=== PATIENT | male | born 2000 | race Hispanic/Latino ===

== ENCOUNTER 2024-03-03 02:22 | Emergency (ER) | payer MEDICAID ==
[~2024-03-03] VITALS: Ht 170.2 cm; Wt 65.8 kg
--- NOTE | 2024-03-03 02:32 | ERN ---
ED Note History of Present Illness Stated Complaint: NO COMPLAINT Chief Complaint: Other Problems Time Seen by MD: 02:44 Time Seen by Midlevel: 02:25 Dictation: 23-year-old male with a history of depression and anxiety coming in due to suicidal ideation. At this time patient is denying any suicidal homicidal ideations. Patient is stating his girlfriend left him, he went out drinking with his friends had 10 or more drinks when he got home he wrapped a rope around his neck is send a picture to his girlfriend. His girlfriend then sent picture to the foster mom in called PD. Patient states he did not do a two in his life he is just upset about the break up. Allergies: Coded Allergies: No Known Drug Allergies (Unverified Allergy, Unknown, 03/03/24) Review of System Dictation Constitutional: Negative for fever,chills, and weight loss Eyes: Negative for injury, pain,redness, and discharge ENT: Negative for injury,pain or swelling Cardiovascular: Negative for chest pain, palpitations, and edema Respiratory: Negative for shortness of breath, cough, and wheezing, Abdomen/GI: Negative for abdominal pain, nausea, vomiting, diarrhea, and constipation Back: Negative for injury and pain : Negative for injury, bleeding and discharge MS/Extremity: Negative for injury and deformity Skin: Negative for rash, and discoloration Neuro: Negative for headache, weakness, numbness, tingling, and seizure Psych: Negative for suicide ideation, homicidal ideation, and hallucinations Review of Systems: was completed Initial Vital Sign VS Vital Signs Date Time Temp Pulse Resp B/P (MAP) Pulse Ox O2 Delivery O2 Flow Rate FiO2 03/03/24 02:24 98.2 72 16 122/83 99 Room Air 0 03/03/24 02:24 21 Physical Exam Dictation General: awake, alert, NAD Head/Face: Normocephalic, atraumatic Eyes: PERRL, EOMI, vision at baseline ENT: oral cavity clear, TMs clear, no signs of infection Neck: Trachea midline, supple, no nuchal rigidity Cardiovascular: RRR, normal S1/S2, No MRGs, no JVD Respiratory: CTAB, no respiratory distress, No rales or wheezes Abdomen: Soft, non-tender, non-distended, normal bowel sounds, no guarding or rebound. Skin: Warm, dry, normal turgor, no rash MS/Extremity: Pulses equal, no cyanosis, neurovascular intact, FROM Neuro: COAx4, GCS 15, strength 5/5, CN 2-12 intact, normal cerebellar exam, normal gait, Psych: Normal behavior, mood, and affect normal Results (Laboratory/Radiology) Laboratory/Radiology Laboratory Tests Test 03/03/24 02:38 03/03/24 02:46 03/03/24 04:49 Urine Color LIGHT-YELLOW (YELLOW) Urine Appearance CLEAR (CLEAR) Urine pH 5.5 (5.0-8.0) Urine Specific Meredith 1.009 (1.001-1.031) Urine Protein NEGATIVE mg/dL (NEGATIVE) Urine Glucose (UA) NEGATIVE mg/dL (NEGATIVE) Urine Ketones NEGATIVE mg/dL (NEGATIVE) Urine Occult Blood NEGATIVE (NEGATIVE) Urine Nitrate NEGATIVE (NEGATIVE) Urine Bilirubin NEGATIVE mg/dL (NEGATIVE) Urine Urobilinogen 0.2 mg/dL (0.2-1.0) Urine Leukocyte Esterase 25 Maxx/uL (NEGATIVE) H Urine RBC 2-5 /HPF (0-1) H Urine WBC 6-10 /HPF (0-1) H Urine Squamous Epithelial Cells RARE /HPF (0-2) Urine Bacteria FEW /HPF (None Seen) Urine Hyaline Casts 2-5 /LPF (0-1 /LPF) H Urine Opiates Screen NEGATIVE (NEGATIVE) Urine Barbiturates Screen NEGATIVE (NEGATIVE) Urine Phencyclidine Screen NEGATIVE (NEGATIVE) Urine Amphetamines Screen NEGATIVE (NEGATIVE) Urine Benzodiazepines Screen NEGATIVE (NEGATIVE) Urine Cocaine Screen NEGATIVE (NEGATIVE) Urine Marijuana (THC) Screen NEGATIVE (NEGATIVE) White Blood Count 7.6 K/uL (4.8-10.8) Red Blood Count 4.60 MIL/uL (4.50-6.20) Hemoglobin 15.4 g/dL (14.0-18.0) Hematocrit 43.8 % (42-54) Mean Corpuscular Volume 95.2 fL (79-99) Mean Corpuscular Hemoglobin 33.5 pg (27.0-33.0) H Mean Corpuscular Hemoglobin Concent 35.2 g/dL (32.0-36.0) Red Cell Distribution Width 12.5 % (11.0-15.5) Platelet Count 236 K/uL (130-400) Mean Platelet Volume 10.2 fL (7.5-10.5) Immature Granulocyte % (Auto) 0.1 % (0-1) Neutrophils (%) (Auto) 40.6 % (40.0-77.0) Lymphocytes (%) (Auto) 48.3 % (21.0-51.0) Monocytes (%) (Auto) 7.4 % (3.0-13.0) Eosinophils (%) (Auto) 2.8 % (0.0-8.0) Basophils (%) (Auto) 0.8 % (0.0-5.0) Neutrophils # (Auto) 3.1 K/uL (1.8-7.7) Lymphocytes # (Auto) 3.7 K/uL (1.0-4.8) Monocytes # (Auto) 0.6 K/uL (0.1-1.0) Eosinophils # (Auto) 0.21 K/uL (0.00-0.70) Basophils # (Auto) 0.06 K/uL (0.00-0.20) Absolute Immature Granulocyte (auto 0.01 K/uL (0-1) Nucleated Red Blood Cells 0.0 % (0.0-0.19) Sodium Level 139 mmol/L (136-145) Potassium Level 3.6 mmol/L (3.5-5.1) Chloride Level 102 mmol/L (101-111) Carbon Dioxide Level 28 mmol/L (21-32) Blood Urea Nitrogen 5 mg/dL (7-18) L Creatinine 0.8 mg/dL (0.5-1.3) Glomerular Filtration Rate Calc 126 mL/min (>90) Random Glucose 78 mg/dL (70-105) Total Calcium 9.1 mg/dL (8.5-10.1) Total Creatine Kinase 87 U/L (21-232) Salicylates Level < 2.8 mg/dL (2.8-20.0) L Acetaminophen Level < 1 mcg/mL (10-29) L Serum Alcohol 118 mg/dL (0-10) H 86 mg/dL (0-10) H ED Course ED Course Orders Procedure Category Date Status Time Cbc With Differential LAB 03/03/24 Complete 02: Alcohol, Blood LAB 03/03/24 Complete 02: Salicylate LAB 03/03/24 Complete 02:27 Acetaminophen LAB 03/03/24 Complete 02:27 Urinalysis Profile LAB 03/03/24 Complete 02:27 Creatine Kinase, Total LAB 03/03/24 Complete 02:27 Basic Metabolic Panel LAB 03/03/24 Complete 02:27 Drug Screen Urine LAB 03/03/24 Complete 02:29 Culture Urine LESLIE 03/03/24 In Process 03:23 Alcohol, Blood LAB 03/03/24 Complete 04:41 Vital Signs Date Time Temp Pulse Resp B/P (MAP) Pulse Ox O2 Delivery O2 Flow Rate FiO2 03/03/24 07:59 98.1 90 16 126/77 100 Room Air* 0 03/03/24 06:32 97.7 70 16 118/76 99 Room Air* 0 03/03/24 02:24 98.2 72 16 122/83 99 Room Air* 0 03/03/24 02:24 98.2 72 16 122/83 99 Room Air 0 Medical Decision Making MDM Patient has been accepted for inpatient psychiatric evaluation Progress note by Dr. Marcello Higuera. I assumed care of this patient at 7:00 a.m. I have reviewed the nursing notes, vital signs and available diagnostic studies. I have reviewed the charting completed by my colleague. The patient has been cooperative and interactive. There is an officer in attendance. Plan is to move him to [facility] for inpatient management of his suicidal gesture and situational depression. Review of his labs indicate there are some white cells in the urine. I have added gonorrhea and chlamydia. A reflex culture is also pending. The patient is stable for transfer DX & DISP Disposition: Transfer Decision to Admit Date: Mar 03, 2024 Decision to Admit Time: 08:12 Departure Impression: Primary Impression: Suicide gesture Additional Impressions: Suicidal ideation, Acute situational depression, Asymptomatic pyuria Condition: Stable Assign Patient to: Patient will be taken to [facility] by the officer in attendance Time of Disposition: 08:13 KUSUM YING NP Mar 03, 2024 02:32 IRENE HARRIS MD Mar 03, 2024 06:53 MARCELLO HIGUERA MD Mar 03, 2024 08:13
[2024-03-03 02:55] LABS: BASOPHILS # (AUTO) 0.06 K/uL (0.00-0.20); BASOPHILS % (AUTO) 0.8 % (0.0-5.0); EOSINOPHILS # (AUTO) 0.21 K/uL (0.00-0.70); EOSINOPHILS % (AUTO) 2.8 % (0.0-8.0); HEMATOCRIT 43.8 % (42-54); IMMATURE GRANULOCYTE ABSOLUTE 0.01 K/uL (0-1); LYMPHOCYTES # (AUTO) 3.7 K/uL (1.0-4.8); LYMPHOCYTES % (AUTO) 48.3 % (21.0-51.0); MEAN CORPUSCULAR HEMOGLOBIN 33.5 pg (27.0-33.0); MEAN CORPUSCULAR HGB CONC 35.2 g/dL (32.0-36.0); MEAN CORPUSCULAR VOLUME 95.2 fL (79-99); MONOCYTES # (AUTO) 0.6 K/uL (0.1-1.0); MONOCYTES % (AUTO) 7.4 % (3.0-13.0); NEUTROPHILS # (AUTO) 3.1 K/uL (1.8-7.7); NEUTROPHILS % (AUTO) 40.6 % (40.0-77.0); PLATELET COUNT (AUTO) 236 K/uL (130-400); RED CELL DISTRIBUTION WIDTH 12.5 % (11.0-15.5); WHITE BLOOD COUNT (AUTO) 7.6 K/uL (4.8-10.8)
[2024-03-03 03:04] LABS: AMPHET/METH SCREEN,URINE NEGATIVE (NEGATIVE); BARBITURATE SCREEN, URINE NEGATIVE (NEGATIVE); BENZODIAZEPINES SCREEN,URINE NEGATIVE (NEGATIVE); CANNABINOID SCREEN,URINE NEGATIVE (NEGATIVE); COCAINE SCREEN,URINE NEGATIVE (NEGATIVE); OPIATE SCREEN,URINE NEGATIVE (NEGATIVE); PHENCYCLIDINE SCREEN,URINE NEGATIVE (NEGATIVE)
[2024-03-03 03:06] LABS: CARBON DIOXIDE 28 mmol/L (21-32); CHLORIDE 102 mmol/L (101-111); CREATININE 0.8 mg/dL (0.5-1.3); GLOMERULAR FILTR. RATE CALC 126 mL/min (>90); GLUCOSE,RANDOM 78 mg/dL (70-105); POTASSIUM 3.6 mmol/L (3.5-5.1); SODIUM SERUM 139 mmol/L (136-145); UREA NITROGEN, BLOOD 5 mg/dL (7-18)
[2024-03-03 03:10] LABS: ALCOHOL, BLOOD 118 mg/dL (0-10); CREATINE KINASE, TOTAL 87 U/L (21-232)
[2024-03-03 03:16] LABS: APPEARANCE,URINE CLEAR (CLEAR); BILIRUBIN,URINE NEGATIVE (NEGATIVE); COLOR,URINE LIGHT-YELLOW (YELLOW); GLUCOSE, URINE (UA) NEGATIVE (NEGATIVE); KETONES,URINE NEGATIVE (NEGATIVE); LEUKOCYTE ESTERASE ,URINE 25 Leu/uL (NEGATIVE); NITRATE,URINE NEGATIVE (NEGATIVE); OCCULT BLOOD,URINE NEGATIVE (NEGATIVE); PH,URINE 5.5 (5.0-8.0); PROTEIN,URINE NEGATIVE (NEGATIVE); UROBILINOGEN,URINE 0.2 mg/dL (0.2-1.0)
[2024-03-03 03:17] LABS: ADD UA MICROSCOPIC YES
[2024-03-03 03:20] LABS: BACTERIA,URINE FEW /HPF (None Seen); MUCUS,URINE RARE LPF (None Seen); SQUAMOUS EPITHELIAL CELL,UR RARE /HPF (0-2)
[2024-03-03 03:25] LABS: ACETAMINOPHEN < 1 mcg/mL (10-29); SALICYLATE < 2.8 mg/dL (2.8-20.0)
--- NOTE | 2024-03-03 05:17 | NUR ---
MELISSA HERRERA CONTACTED TO INITIATE SCREENING
--- NOTE | 2024-03-03 06:15 | NUR ---
ANI MUELLER, [facility] AT BEDSIDE
--- NOTE | 2024-03-03 06:48 | NUR ---
PER SCREENER, PATIENT MEETS [facility]PATIENT [facility]
[2024-03-03 07:59] VITALS: BP 126/77; PULSE 90; RESP 16; TEMP 98; O2SAT 100
--- NOTE | 2024-03-03 08:12 | NUR ---
PT ACCEPTED TO [facility]. ACCEPTING TIME: 804, ACCEPTING PHYSICIAN: DR. GROSSMAN. LOG COOKER: CHAR BOWLES.
--- NOTE | 2024-03-03 08:18 | NUR ---
GAVE REPORT TO BRYANT RENE IN REGARDS TO PT AT [facility] .
--- NOTE | 2024-03-03 08:26 | NUR ---
PT LEFT WITH PD TO [facility].
== END 2024-03-03 08:26 | disposition home or self-care (01) ==
LOC: EDH 02:22 → EEVIPCON 02:22 → EDH 08:26
DX: R45.851 Suicidal ideations (principal); F43.21 Adjustment disorder with depressed mood; R82.81 Pyuria
CPT/HCPCS: 99285; 82550; 80048; 80305; 85025; 87086; 87491; 87591; 36415; 81001; G0481